=== PATIENT | female | born 1985 | race Two or more races ===

== ENCOUNTER 2018-10-15 10:26 | Day surgery (SDC) | payer OTHER | END 2018-10-15 14:43 | disposition home or self-care (01) | LOC: AMB-ENDOS 10:26 | DX: N80.5 Endometriosis of intestine (principal); Z12.11 Encounter for screening for malignant neoplasm of colon ==

== ENCOUNTER 2018-11-04 07:15 | Inpatient (IN) | payer OTHER ==
[~2018-11-04] VITALS: Ht 157.5 cm; Wt 65.3 kg
[2018-11-04] MEDS ORDERED: SYNTHROID200 MCG PO (09:39)
[2018-11-04] MEDS ORDERED: THYROXINE PO (09:39)
[2018-11-06] MEDS ORDERED: LIOTHYRONINE S25 MCG PO (08:29)
== END 2018-11-06 11:32 | disposition home or self-care (01) | DRG 743 ==
LOC: O/R 07:15 → SURH 11-05 07:00 → OB/GYN 11-05 11:18 → O/R 11-05 11:18 → OB/GYN 11-05 11:32
PROVIDERS: ADMIT Obstetrics & Gynecology
PROC: 0UT54ZZ Resection of Right Fallopian Tube, Percutaneous Endoscopic Approach (ICD-10-PCS; 2018-11-05)
PROC: 0UB04ZZ Excision of Right Ovary, Percutaneous Endoscopic Approach (ICD-10-PCS; 2018-11-05)
PROC: 0UT94ZZ Resection of Uterus, Percutaneous Endoscopic Approach (ICD-10-PCS; principal; 2018-11-05 07:00)
DX: D25.1 Intramural leiomyoma of uterus (principal); N80.1 Endometriosis of ovary; N83.01 Follicular cyst of right ovary; N72 Inflammatory disease of cervix uteri